=== PATIENT | male | born 1965 | race Caucasian/White ===

== ENCOUNTER 2022-04-30 07:28 | Day surgery (SDC) | payer MEDICARE, OTHER ==
[~2022-04-30] VITALS: Ht 172.7 cm; Wt 89.4 kg
[~2022-04-30 07:28] MED LIST: AMPICILLIN SOD/SULBACTAM SOD 3 GM in D5W MINI-BAG PLUS 100 ML IV ONE; COLE1TAB PO; CYCL-707 PO; DEPA500T2 PO; GABA-282 PO; HYDR-4517 PO; K-PHTAB2 PO; NABU-71 PO; PANT40TA29 PO; POTA10CA32 PO; SERT25TA21 PO; SPIR-10 PO; VITA500045 PO; dexameTHASONE 4 MG/ML 1ML VIAL (J1100 PER 1MG) IV ONE
[2022-04-30] MEDS ORDERED: DESV50TA3 PO (07:54)
[2022-04-30] MEDS ORDERED: MIDAZOLAM INJ 2MG/2ML VIAL (J2250 PER 1MG) As Ordered ONE (08:03)
[2022-04-30] MEDS ORDERED: fentaNYL 250 MCG/5 ML INJECTION As Ordered ONE (08:03)
[2022-04-30] MEDS ORDERED: LIDOCAINE 2% INJ 100 MG/5 ML SYRINGE As Ordered ONE (08:04)
[2022-04-30] MEDS ORDERED: ONDANSETRON 4MG 2ML VIAL As Ordered ONE (08:04)
[2022-04-30] MEDS ORDERED: ROCURONIUM BROMIDE 50 MG/5 ML VIAL As Ordered ONE (08:04)
[2022-04-30] MEDS ORDERED: propofoL 200 MG/20 ML VIAL As Ordered ONE (08:04)
[2022-04-30] MEDS ORDERED: METOCLOPRAMIDE INJ 10MG/2ML VIAL (J2765 PER 1) As Ordered ONE (08:08)
[2022-04-30] MEDS ORDERED: LR 1,000 ML IV SCH ×2 (08:10→10:10)
[2022-04-30] MEDS ORDERED: BUPIVACAINE LIPOSOME/PF 1.3% 20ML VIAL (13.3MG/ML)(EXPAREL) As Ordered ONE (08:11)
[2022-04-30] MEDS ORDERED: CHLORHEXIDINE GLUCONATE 0.12 % 15ML UDC (PERIDEX ORAL RINSE) As Ordered ONE (08:11)
[2022-04-30] MEDS ORDERED: LIDOCAINE 2% W/ EPINEPHRINE 1.7 ML DENTAL INJ As Ordered ONE (08:11)
[2022-04-30] MEDS ORDERED: LIDOCAINE 2% JELLY 5ML TUBE As Ordered ONE (08:16)
[2022-04-30] MEDS ORDERED: ACETAMINOPHEN 1000MG 100ML IV BTL (OFIRMEV) (J0131 PER 10MG) As Ordered ONE (09:18)
[2022-04-30] MEDS ORDERED: dexameTHASONE 4 MG/ML 1ML VIAL (J1100 PER 1MG) As Ordered ONE (09:19)
[2022-04-30] MEDS ORDERED: SUGAMMADEX SODIUM 500 MG/5 ML VIAL (BRIDION) As Ordered ONE (09:38)
[2022-04-30] MEDS ORDERED: PHENYLephrine 500MCG 5ML (100MCG/ML) SYRINGE As Ordered ONE (09:38)
[2022-04-30] MEDS ORDERED: fentaNYL 100 MCG/2 ML INJECTION IV PRN (10:10)
[2022-04-30] MEDS ORDERED: oxyCODONE 5MG TAB PO PRN (10:10)
[2022-04-30 11:50] VITALS: BP 132/81
== END 2022-04-30 12:00 | disposition home or self-care (01) ==
LOC: M SDC 07:28
PROVIDERS: ATTEND Dentist
DX: K02.9 Dental caries, unspecified (principal); G47.33 Obstructive sleep apnea (adult) (pediatric); Z79.899 Other long term (current) drug therapy; Z88.8 Allergy status to other drugs, medicaments and biological substances; F41.9 Anxiety disorder, unspecified; F32.A Depression, unspecified; Z87.891 Personal history of nicotine dependence
CPT/HCPCS: 88300; C9290; D7140; D7210; D9223; J0131; J0295; J1100; J2250; J2370; J2765; J3010